=== PATIENT | male | born 2000 | race African-American/Black ===

== ENCOUNTER 2021-01-03 19:29 | Emergency (ER) | payer OTHER, MEDICAID ==
[~2021-01-03] VITALS: Ht 170.2 cm; Wt 74.0 kg
[2021-01-03 19:34] VITALS: BP 147/72
[2021-01-03] MEDS ORDERED: IBUPROFEN 600MG TABLET PO STA (20:06)
[2021-01-03] MEDS ORDERED: IBUP-2029 MT (22:05)
== END 2021-01-03 23:04 | disposition home or self-care (01) ==
LOC: ER 19:29
DX: R07.89 Other chest pain (principal); J45.909 Unspecified asthma, uncomplicated
CPT/HCPCS: 71045; 93005; 99283